=== PATIENT | female | born 1960 | race Caucasian/White ===

== ENCOUNTER → 2017-11-25 | Outpatient (CLI) | payer OTHER | LOC: CIMAGING 07:14 | PROVIDERS: ATTEND Family Medicine | DX: Z12.31 Encounter for screening mammogram for malignant neoplasm of breast (principal) ==

== ENCOUNTER → 2018-01-13 | Outpatient (CLI) | payer OTHER | LOC: CIMAGING 12:41 | PROVIDERS: ATTEND Family Medicine | DX: R93.8 Abnormal findings on diagnostic imaging of other specified body structures (principal); Z78.0 Asymptomatic menopausal state | CPT/HCPCS: 76856-PO ==

== ENCOUNTER → 2018-12-29 | Outpatient (CLI) | payer OTHER | LOC: EMCIMAGING 10:56 | PROVIDERS: ATTEND Family Medicine | DX: Z12.31 Encounter for screening mammogram for malignant neoplasm of breast (principal) | CPT/HCPCS: 77067-PN ==